=== PATIENT | female | born 1935 | race Caucasian/White ===

== ENCOUNTER 2016-04-11 12:25 | Inpatient (IN) | payer OTHER, MEDICAID ==
[~2016-04-11] VITALS: Ht 160 cm; Wt 72.6 kg
[~2016-04-11 12:25] MED LIST: ACETAMINOPHEN650 M6 PO; ACTOS15 MG; AMBIEN10 MG PO; ARMOUR THYROID60 M1; ATIVAN0.5 MG PO; ATIVAN2 MG; BETHANECHOL CHL10 MG; CEPHULAC10 GM/152 PO; COLACE250 MG PO; COREG3.125 MG; DESYREL50 MG PO; DILAUDID1 MG/M1; DILAUDID2 M1; DIOVAN 12.5 MG-1 TAB; DULCOLAX10 MG RC; FLEET ENEMA 13135 ML RC; MILK OF MA400 MG/5 M PO; MIRALAX17 GM/DOSE PO; MULTIVITAMIN1 SGL PO; MYLICON80 MG PO; NEURONTIN100 MG PO; NITROSTAT0.4 M1 SL; ONE DAILY MAXIM1 TAB PO; PERCOCET 325 MG1 TA4 PO; PERCOCET 5/3251 TAB PO; PROTONIX40 M1; PROVENTIL2.5 MG/3 M INH; SALT PO; SYNTHROID0.125 MG PO; TEMAZEPAM30 MG; TRAMADOL50 MG; ULTRAM50 MG PO; ZANTAC150 MG PO; ZOFRAN4 M1 PO; [UNRECOGNIZED DRUG - REMARK]
--- NOTE | 2016-04-11 12:29 | NUR ---
PT TO BED 3 BY EMS AT THIS TIME.
--- NOTE | 2016-04-11 12:32 | NUR ---
81F BIBA FROM [facility] C/O ABDOMINAL DISTENTION X 3 DAYS; PT C/O MID-ABDOMINAL PAIN, ACHING, NON-RADIATING, 8/10 X 3 DAYS; ABDOMEN FIRM, DISTENDED, HYPOACTIVE BOWEL SOUNDS X4 QUADRANTS; PT STATES "I'VE BEEN VOMITING ALL NIGHT AND ALL DAY TODAY", BUT DENIES DIARRHEA AT THIS TIME; PER EMS, NURSE AT [facility] ADMINISTERED DILAUDID AND ATIVAN 30 MIN PRIOR TO ARRIVAL TO ER; A&OX4, BL LUNG SOUNDS CLEAR, RR EVEN/UNLABORED, SKIN IS WARM/DRY/INTACT AT THIS TIME; PT STATES DOES NOT AMBULATE AT FACILITY; PT PLACED IN GOWN/ON MONITOR; RESTING IN BED W/ HOB ELEVATED AND IN LOWEST POSITION; POSITIONED FOR COMFORT; ER MD MADE AWARE OF STATUS. WILL CONTINUE TO MONITOR.
[2016-04-11 12:34] VITALS: BP 132/90
--- NOTE | 2016-04-11 12:54 | NUR ---
XRAY AT BEDSIDE
[2016-04-11] MEDS ORDERED: LIDOCAINE VISCOUS 2% 20 ML UDC ONE (13:07)
[2016-04-11] MEDS ORDERED: LORazepam 2 MG/ML VIAL IM ONE (13:50)
[2016-04-11] MEDS ORDERED: LORazepam 2 MG/ML VIAL IVP ONE (13:55)
--- NOTE | 2016-04-11 14:02 | NUR ---
# 12 FR NG tube placed to LEFT nare BY ER MD DR. HAYWOOD AT BEDSIDE. Placement checked by auscultation of instilled air into stomach and aspiration of gastric contents. Tubing taped in place to prevent dislodging. Patient tolerated PROCERDURE WELL.
[2016-04-11] MEDS ORDERED: NACL 0.9% 2,000 ML IV ONE (14:55)
--- NOTE | 2016-04-11 14:55 | NUR ---
URINE DIPSTICK RESULT RELAYED TO DR HAYWOOD
--- NOTE | 2016-04-11 15:49 | NUR ---
REPORT GIVEN TO INDRA ROSE.
--- NOTE | 2016-04-11 15:55 | NUR ---
Patient will be admitted to care of DR HAJI. Admited to TELE. Will go to [facility]. Belongings list completed. Report to INDRA ROSE.
[2016-04-11 16:10] VITALS: BP 92/75
--- NOTE | 2016-04-11 16:10 | NUR ---
PT ARRIVED FROM ER. RECEIVED REPORT FROM INDRA LASSITER. PT IS AAOX2, PT ON 2L NC O2 SAT AT98%. NG TUBE TO LEFT NARE, CLAMPED. IV TO RIGHT HAND #24. REDNESS TO HEELS NOTED. NO N/V OR PAIN INDICATED. ALL SAFETY PRECAUTIONS IN PLACE, SIDE RAILSX2, BED IN LOW POSITION, AND CALL LIGHT WITHIN REACH. WILL CONTINUE TO MONITOR
[2016-04-11] MEDS ORDERED: ONDANSETRON 4 MG/2 ML VIAL IVP PRN (16:30)
[2016-04-11] MEDS ORDERED: BISACODYL 10 MG SUPP RC PRN (16:30)
[2016-04-11] MEDS ORDERED: LORazepam 0.5 MG TAB PO PRN (16:30)
[2016-04-11] MEDS ORDERED: POTASSIUM CHL 10 MEQ/D5-1/2NS 1,000 ML IV SCH (16:30)
[2016-04-11] MEDS ORDERED: ZOLPIDEM 10 MG TAB PO PRN (16:30)
--- NOTE | 2016-04-11 16:40 | NUR ---
PT HAD LARGE BOWEL MOVEMENT, PT CLEANED.
[2016-04-11] MEDS ORDERED: DEXTROSE 50% 50 ML SYR IVP PRN (16:50)
--- NOTE | 2016-04-11 18:00 | NUR ---
DR PICKENS IN TO SEE PT. PT NG TUBE TO REMAIN CLAMPED, NG TUBE TO BE USED FOR MED ADMINISTRATION PER DR PICKENS. WILL FOLLOW UP ON ORDERS.
[2016-04-11] MEDS ORDERED: MAGNESIUM CITRATE 300 ML BTL PO SCH (18:10)
[2016-04-11] MEDS ORDERED: SODIUM PHOSPHATE 118 ML ENEM RC SCH (18:30)
[2016-04-11] MEDS: POTASSIUM CHL 20MEQ/D5-NS 1,000 ML IV SCH (18:47)
--- NOTE | 2016-04-11 19:16 | NUR ---
PT TOLERATED MEDS WELL. WILL CONTINUE TO MONITOR.
--- NOTE | 2016-04-11 19:30 | NUR ---
ENDORSED CARE TO INDRA AGUAYO. PT IN STABLE CONDITION.
--- NOTE | 2016-04-11 19:31 | NUR ---
RECEIVED PT IN STABLE CONDITION FROM ROSE Can RN. NO SOB, NO SIGNS OF DISTRESS. PT ON 2L O2 NC. PT IS AOX2/3 WITH CONFUSION AND FORGETFULNESS. PT BEDBOUND WITH BLE WEAKNESS. PT DENIES PAIN AT THIS TIME. PT TRYING TO PULL OUT NGT AND IV, PLACED MITTENS OF PT. NGT TO LT NARE CLAMPED, PATENT, IRRIGATED, FLUSHED, AUSCULTATED FOR POSITIVE PLACEMENT. PT WITH BLANCHABLE REDNESS TO BILATERAL HEELS. SKIN OTHERWISE INTACT, PLAN OF CARE DISCUSSED WITH PT. SAFETY MEASURES IN PLACE. CALL LIGHT WITHIN REACH. WILL CONTINUE TO MONITOR.
[2016-04-11 20:00] VITALS: BP 108/69
[2016-04-11] MEDS: traZODone 50 MG TAB PO SCH (20:41)
[2016-04-11] MEDS: FAMOTIDINE 20 MG/2 ML VIAL IV SCH (20:42)
[2016-04-11] MEDS: SENNA 8.6 MG TAB PO SCH (20:42)
[2016-04-11] MEDS: BISACODYL 10 MG SUPP RC SCH (20:42)
[2016-04-11] MEDS: BLOOD GLUCOSE MONITORING 1 DEV DEV FS SCH (20:44)
--- NOTE | 2016-04-11 20:44 | NUR ---
PT TOLERATED DUE MEDS WELL BY NGT. NO SOB, NO SIGNS OF DISTRESS. PT ON 2L O2 NC. IV SITE ASYMPTOMATIC, INTACT, PATENT, IVF RUNNING. PT DENIES PAIN AT THIS TIME. PLAN OF CARE DISCUSSED WITH PT. SAFETY MEASURES IN PLACE. CALL LIGHT WITHIN REACH. WILL CONTINUE TO MONITOR.
[2016-04-11] MEDS: INSULIN LISPRO SLIDING SCALE 100 UNITS/ML VIAL SUBQ PRN (23:01)
--- NOTE | 2016-04-11 23:40 | NUR ---
MOVED PT TO ROOM 121A DUE TO CONCERN OF PTS ROOMMATE STANDING OVER PT WHILE SHE WAS SLEEPING. NO SOB, NO SIGNS OF DISTRESS. PT ASLEEP IN BED. IV SITE ASYMPTOMATIC, INTACT, PATENT, IVF RUNNING. PT ON 2L O2 NC. NGT IN PLACE. SAFETY MEASURES IN PLACE. CALL LIGHT WITHIN REACH. WILL CONTINUE TO MONITOR.
[2016-04-12] VITALS: BP 114/57
--- NOTE | 2016-04-12 00:15 | NUR ---
VS STABLE. NO SOB, NO SIGNS OF DISTRESS. PT ON 2L O2 NC. IV SITE ASYMPTOMATIC, INTACT, PATENT, IVF RUNNING. PT DENIES PAIN AT THIS TIME. SAFETY MEASURES IN PLACE. CALL LIGHT WITHIN REACH. WILL CONTINUE TO MONITOR.
--- NOTE | 2016-04-12 02:18 | NUR ---
PT ASLEEP IN BED. NO SOB, NO SIGNS OF DISTRESS. PT ON 2L O2 NC. IV SITE ASYMPTOMATIC, INTACT, PATENT, IVF RUNNING. NGT IN PLACE. SAFETY MEASURES IN PLACE. CALL LIGHT WITHIN REACH. WILL CONTINUE TO MONITOR.
--- NOTE | 2016-04-12 03:55 | NUR ---
VS STABLE. PT ON 2L O2 NC. NO SOB, NO SIGNS OF DISTRESS. IV SITE ASYMPTOMATIC, INTACT, PATENT, IVF RUNNING. PT DENIES PAIN AT THIS TIME. PLAN OF CARE DISCUSSED WITH PT. SAFETY MEASURES IN PLACE. CALL LIGHT WITHIN REACH. WILL CONTINUE TO MONITOR.
[2016-04-12 04:00] VITALS: BP 108/67
[2016-04-12] MEDS: LEVOTHYROXINE 0.1 MG, LEVOTHYROXINE 0.025 MG PO SCH (05:45)
[2016-04-12] MEDS: POTASSIUM CHL 20MEQ/D5-NS 1,000 ML IV SCH ×3 (05:45→17:06)
[2016-04-12] MEDS: BLOOD GLUCOSE MONITORING 1 DEV DEV FS SCH ×4 (05:57→21:48)
[2016-04-12] MEDS: INSULIN LISPRO SLIDING SCALE 100 UNITS/ML VIAL SUBQ PRN ×3 (05:57→18:27)
--- NOTE | 2016-04-12 06:12 | NUR ---
BLOOD SUGAR 182, GAVE INSULIN PER MD ORDER. APPLIED SCDS. PT DENIES PAIN AT THIS TIME. NO SOB, NO SIGNS OF DISTRESS. IV SITE ASYMPTOMATIC, INTACT, PATENT, IVF RUNNING. PLAN OF CARE DISCUSSED WITH PT. SAFETY MEASURES IN PLACE. CALL LIGHT WITHIN REACH. WILL CONTINUE TOMORROW.
[2016-04-12] MEDS: HYDROmorphone 1 MG/ML AMP IVP PRN ×3 (06:51→22:52)
--- NOTE | 2016-04-12 06:51 | NUR ---
PT C/O PAIN ION ABDOMEN, MEDICATED PER MD ORDER. VS STABLE. PT ON 2L O2 NC. NGT IN PLACE. IV SITE ASYMPTOMATIC, INTACT, PATENT IVF RUNNING. PLAN OF CARE DISCUSSED WITH PT. SAFETY MEASURES IN PLACE. CALL LIGHT WITHIN REQACH. WILL CONTINUE TO MONITOR.
--- NOTE | 2016-04-12 07:23 | NUR ---
ENDORSED PT IN STABLE CONDITION TO INDRA DAUGHERTY. ALL NEEDS HAVE BEEN MET AT THIS TIME.
--- NOTE | 2016-04-12 07:23 | NUR ---
RECEIVED REPORT FROM NIGHT NURSE, PT IS AAOX2/3 WITH CONFUSION, IV TO RIGHT HAND 24G INFUSING WELL, O2 3L VIA NC, BILATERAL HEELS REDNESS, NG TUBE TO LEFT NOSTRIL, HARD DISTENDED ABD. INITIAL ASSESSMENT COMPLETED, ORIENTED PT TO ROOM AND ENVIRONMENT, ALL FALL/SAFETY PRECAUTIONS MET. CALL LIGHT WITHIN REACH. WILL CONTINUE TO MONITOR.
--- NOTE | 2016-04-12 07:56 | NUR ---
PATIENT HAS BEEN SCREENED AND CATEGORIZED MODERATE RISK. PATIENT WILL BE SEEN WITHIN 3-5 DAYS OF ADMISSION. 04/14/16 TO 04/16/[address]
[2016-04-12 08:00] VITALS: BP 109/67
[2016-04-12] MEDS ORDERED: SODIUM PHOSPHATE 118 ML ENEM RC SCH (08:00)
[2016-04-12] MEDS ORDERED: NON-FORMULARY ITEM (Levothyroxine Sodium* (Synthroid*) 0.125 MG) PO SCH (09:00)
[2016-04-12] MEDS: POLYETHYLENE GLYCOL 17 GM/PKT PO SCH ×3 (09:03→17:05)
[2016-04-12] MEDS: BISACODYL 10 MG SUPP RC SCH ×2 (09:03→21:00)
[2016-04-12] MEDS: SENNA 8.6 MG TAB PO SCH ×4 (09:03→21:39)
[2016-04-12] MEDS: DOCUSATE SODIUM 250 MG GELCAP PO SCH (09:04)
[2016-04-12] MEDS: GABAPENTIN 100 MG CAP PO SCH (09:05)
--- NOTE | 2016-04-12 09:14 | NUR ---
DUE MEDICATIONS GIVEN, PT C/O OF ABD DISCOMFORT AND NG TUBE DISCOMFORT. CALL LIGHT WITHIN REACH WILL CONTINUE TO MONITOR.
--- NOTE | 2016-04-12 09:30 | NUR ---
PT HAD A BM, PT WAS CLEANED, ALL NEEDS MET. CALL LIGHT WITHIN REACH.
[2016-04-12] MEDS ORDERED: POTASSIUM CHLORIDE 20% 40 MEQ/15 ML UDC NG SCH (09:50)
--- NOTE | 2016-04-12 11:10 | NUR ---
CHECKED IN ON PT, PT CURRENTLY SLEEPING. CALL LIGHT WITHIN REACH. WILL CONTINUE TO MONITOR.
[2016-04-12 12:00] VITALS: BP 122/67
--- NOTE | 2016-04-12 13:00 | NUR ---
DUE MEDICATIONS GIVEN. PT CURRENTLY AWAKE, DAUGHTER AT BEDSIDE CALL LIGHT WITHIN REACH. WILL CONTINUE TO MONITOR.
--- NOTE | 2016-04-12 14:45 | NUR ---
PT CURRENTLY VISITING WITH DAUGHTER. NO S/S OF DISTRESS OR DISCOMFORT NOTED. CALL LIGHT WITHIN REACH.
[2016-04-12 16:00] VITALS: BP 121/73
--- NOTE | 2016-04-12 17:08 | NUR ---
DUE MEDICATIONS GIVEN VIA NG TUBE. PT CURRENTLY SLEEPING. CALL LIGHT WITHIN REACH. WILL CONTINUE TO MONITOR.
--- NOTE | 2016-04-12 18:31 | NUR ---
PT CURRENTLY ASLEEP. NO S/S OF RESPIRATORY DISTRESS NOTED. CALL LIGHT WITHIN REACH.
--- NOTE | 2016-04-12 19:10 | NUR ---
ENDORSED PLAN OF CARE TO NIGHT NURSE. PT IN STABLE CONDITION.
--- NOTE | 2016-04-12 19:13 | NUR ---
RECEIVED PT FROM LILIAN BURRELL AT PT BEDSIDE FOR CONTINUITY OF CARE. PT NOTED STABLE, SLEEPING.
--- NOTE | 2016-04-12 19:55 | NUR ---
SHIFT ASSESSMENT DONE AT THIS TIME. PT IS A/O X2, ABLE TO VERBALIZE NEEDS AND FOLLOW COMMANDS. NO ACUTE DISTRESS NOTED. DISCUSSED PLAN OF CARE WITH PT, VERBALIZED UNDERSTANDING. VITAL SIGNS TAKEN, ARE STABLE. PT ON 3L VIA NASAL CANNULA WITH OXYGEN SATURATION AT 99%. PT IS AFEBRILE. PT DENIES PAIN, N/V, SOB, OR CHEST PAIN AT THIS TIME. UPON INSPECTION IV ACCESS TO RT HAND #24G, PATENT AND INTACT IVF. NOTED NO ACTIVE WOUNDS ONLY SACRAL REDNESS, BLANCHABLE. LUNG SOUNDS ARE CLEAR. BOWEL SOUNDS ARE DECREASED, AND LOW. ABDOMEN NOTED DISTENDED, WILL INFORM MD. PT HAS NG TUBE TO LEFT NARES, INTACT, POSITIVE FOR PLACEMENT WHEN AUSCULTATED. NO RESIDUAL NOTED, PATENT. SCD'S ARE IN PLACE. WILL CONTINUE TO MONITOR PT. SAFETY AND FALL RISK PRECAUTIONS IMPLEMENTED. CALL LIGHT WITHIN REACH.
[2016-04-12 20:00] VITALS: BP 131/68
[2016-04-12] MEDS: traZODone 50 MG TAB PO SCH (21:39)
[2016-04-12] MEDS: FAMOTIDINE 20 MG/2 ML VIAL IV SCH (21:39)
--- NOTE | 2016-04-12 21:51 | NUR ---
ELEVATOR CONSTRUCTOR SUPERVISOR'S AT BEDSIDE, PT IS REFUSING TURNING TO OFFLOAD PRESSURE AREAS. AWARE OF THE RISKS AND EDUCATION ON NEED FOR TURNING GIVEN, AWARE AND VERBALIZED UNDERSTANDING OF TEACHING. ELEVATOR CONSTRUCTOR SUPERVISOR'S AWARE. PT CHANGED AND PROVIDED BLANCA CARE, NOTED SACRAL REDNESS BLANCHABLE. PT HAS LOOSE STOOL, MODERATE AND SOFT FORMED, LIGHT BROWN. ALSO FOUND LEFT HAND IV INFILTRATED, IVF STOPPED. WILL RESTART NEW IV ACCESS. CALL LIGHT PLACED WITHIN REACH. WILL CONTINUE TO MONITOR.
--- NOTE | 2016-04-12 22:52 | NUR ---
PROVIDED PT WITH PAIN MEDICATION SEE, eMAR. PT REMAINS STABLE. WILL CONTINUE TO MONITOR. CALL LIGHT WITHIN REACH.
--- NOTE | 2016-04-12 23:03 | NUR ---
MADE DR. HAJI AWARE OF PT C.O. ABDOMINAL PAIN BLOATING AND DISTENTION. MADE AWARE OF PT HAS ABDOMINAL DISTENTION AND NO BOWEL SOUNDS HEARD. RECEIVED ORDER FOR PT TO BE PLACED ON NGT LOW CONTINUOUS SUCTIONING FOR 5-10 MINUETS NEEDED FOR BLOATING AND DISTENTION.
--- NOTE | 2016-04-12 23:05 | NUR ---
APPLIED SUCTION TO NGT PER RAISSA ORDER, WILL STOP IN 10 MIN.
--- NOTE | 2016-04-12 23:15 | NUR ---
NGT SUCTION STOPPED, NO OUTPUT NOTED.
[2016-04-13] VITALS: BP 142/85
--- NOTE | 2016-04-13 00:35 | NUR ---
PT VS REMAIN STABLE. NO ACUTE DISTRESS NOTED.
--- NOTE | 2016-04-13 02:26 | NUR ---
PT REMAINS SLEEPING, NO S/S OF DISTRESS.
--- NOTE | 2016-04-13 02:59 | NUR ---
PLASTERER SPOT'S AT BEDSIDE, PT STILL REFUSING TO BE TURNED. NOTED URINE INCONTINENCE AND PT HAD ANOTHER MODERATE AMOUNT OF BOWEL MOVEMENT. APPLIED Z-GUARD TO PT SACRAL AREA. WILL CONTINUE TO MONITOR PT.
[2016-04-13 04:00] VITALS: BP 121/86
--- NOTE | 2016-04-13 04:04 | NUR ---
PT VSS, C.O. PAIN. WILL PROVIDE PAIN MEDICATION, SEE eMAR. WILL CONTINUE TO MONITOR. CALL LIGHT WITHIN REACH. NC 3L STILL IN PLACE.
[2016-04-13] MEDS: POTASSIUM CHL 20MEQ/D5-NS 1,000 ML IV SCH ×2 (04:31→19:50)
[2016-04-13] MEDS: HYDROmorphone 1 MG/ML AMP IVP PRN ×3 (04:37→18:50)
[2016-04-13] MEDS ORDERED: Z-GUARD PASTE TP PRN (04:45)
[2016-04-13] MEDS: LEVOTHYROXINE 0.1 MG, LEVOTHYROXINE 0.025 MG PO SCH (05:57)
[2016-04-13] MEDS: BLOOD GLUCOSE MONITORING 1 DEV DEV FS SCH ×4 (06:09→21:02)
[2016-04-13] MEDS: INSULIN LISPRO SLIDING SCALE 100 UNITS/ML VIAL SUBQ PRN ×2 (06:12→21:07)
--- NOTE | 2016-04-13 07:20 | NUR ---
ENDORSED PT TO MICHAEL BURRELL FOR CONTINUITY OF CARE.
--- NOTE | 2016-04-13 07:25 | NUR ---
RECEIVED REPORT FROM CARLYLE RN. PT SLEEPING IN BED. AAOX2-3. NO S/S OF ACUTE DISTRESS. IV SITE PATENT AND INTACT. ON O2 3L NC. NG-TUBE NOTED, PATENT. CALL LIGHT WITHIN REACH. SAFETY MEASURES ENSURED. WILL CONTINUE TO MONITOR.
[2016-04-13 08:00] VITALS: BP 150/80
[2016-04-13] MEDS: DOCUSATE SODIUM 250 MG GELCAP PO SCH (09:00)
--- NOTE | 2016-04-13 09:30 | NUR ---
PT REFUSES TO BE REPOSITIONED. EXPLAINED THAT PT SHOULD BE TURNED TO PREVENT SKIN BREAKDOWN. PT VERBALIZED UNDERSTANDING BUT STATED SHE " DIDNT WANT TO BE ON HER SIDES. "
[2016-04-13] MEDS: BISACODYL 10 MG SUPP RC SCH ×2 (10:07→20:56)
[2016-04-13] MEDS: GABAPENTIN 100 MG CAP PO SCH (10:11)
[2016-04-13] MEDS: POLYETHYLENE GLYCOL 17 GM/PKT PO SCH ×3 (10:11→17:00)
[2016-04-13] MEDS: SENNA 8.6 MG TAB PO SCH ×4 (10:11→21:03)
--- NOTE | 2016-04-13 10:28 | NUR ---
PT TOLERATED AM MEDS WELL. NO S/S OF ACUTE DISTRESS. PT STATES PAIN 09/18. EXPLAINED TO PT MEDICATION WASNT DUE YET. SUCTIONED STOMACH TO RELIEVE PAIN. PT STATES IT HELPED. WILL MEDICATE ORDERED. CALL LIGHT WITHIN REACH. SAFETY MEASURES ENSURED.
[2016-04-13 12:00] VITALS: BP 157/74
[2016-04-13] MEDS ORDERED: SODIUM PHOSPHATE 118 ML ENEM RC SCH (12:15)
--- NOTE | 2016-04-13 12:30 | NUR ---
PT REFUSES ENEMA AND ALL 1300 MEDS AT THIS TIME. PT STATES HER STOMACH HERS AND SHE WANTS TO SLEEP. PT EDUCATED ON IMPORTANCE OF TAKING MEDICATIONS. PT VERBALIZED UNDERSTANDING.
--- NOTE | 2016-04-13 12:56 | NUR ---
UPON ENTERING ROOM, PT'S NG-TUBE TAKEN OUT. NO S/S OF ACUTE DISTRESS. FLACC-0. CALL LIGHT WITHIN REACH. SAFETY MEASURES ENSURED. WILL CONTINUE TO MONITOR. Addendum: 04/13/16 at 1259 by Montana Escoto RN WRONG PATIENT
[2016-04-13] MEDS: LACTULOSE 20 GM/30 ML UDC PO SCH ×2 (13:00→17:00)
--- NOTE | 2016-04-13 13:00 | NUR ---
PT SLEEPING IN BED. NO S/S OF ACUTE DISTRESS. CALL LIGHT WITHIN REACH. SAFETY MEASURES ENSURED. WILL CONTINUE TO MONITOR.
[2016-04-13] MEDS: Z-GUARD PASTE TP SCH (13:02)
--- NOTE | 2016-04-13 15:22 | NUR ---
PT SLEEPING IN BED. NO S/S OF ACUTE DISTRESS. CALL LIGHT WITHIN REACH. SAFETY MEASURES ENSURED. WILL CONTINUE TO MONITOR.
[2016-04-13 16:00] VITALS: BP 148/86
--- NOTE | 2016-04-13 18:14 | NUR ---
PT SLEEPING IN BED. NO S/S OF ACUTE DISTRESS. CALL LIGHT WITHIN REACH. SAFETY MEASURES ENSURED. WILL CONTINUE TO MONITOR.
--- NOTE | 2016-04-13 19:00 | NUR ---
RECEIVED PT REPORT FROM MICHAEL BURRELL AT BEDSIDE FOR CONTINUITY OF CARE, PT AWAKE AND STABLE. NO DISTRESS NOTED. CANNULA INTACT.
--- NOTE | 2016-04-13 19:23 | NUR ---
ENDORSED PLAN OF CARE TO NIGHT RN. PT REMAINS IN STABLE CONDITION.
--- NOTE | 2016-04-13 19:26 | NUR ---
SHIFT ASSESSMENT DONE. PT IS A/O X3, NO SIGNS OF ACUTE DISTRESS. PT IS COOPERATIVE, CALM, ABLE TO VERBALIZE NEEDS AND FOLLOW COMMANDS. DISCUSSED PLAN OF CARE WITH PT, VERBALIZED UNDERSTANDING. VITAL SIGNS ARE STABLE, PT ON 2L VIA NASAL CANNULA WITH OXYGEN SATURATION AT 100%. IS AFEBRILE. PT DENIES CHEST PAIN OR SOB. NO RESPIRATORY DISTRESS. LUNG SOUNDS ARE CLEAR. NO BOWEL SOUNDS HEARD AND ABDOMEN IS DISTENDED, MD ALREADY AWARE. NOTED NG-TUBE TO LEFT NARES, PER TODAY'S X-RAY, NG-TUBE IS NOT IN PLACE. PT REFUSING TO ADJUST AND REINSERT, WILL NOTIFY MD. IV ACCESS TO LEFT WRIST #24G, PATENT AND INTACT. SKIN INTACT, REDNESS TO SACRAL AREA AND HEELS, ALL BLANCHABLE. SCD'S ARE IN PLACE. PT STILL REFUSING TO TURN TO OFFLOAD PRESSURE AREAS. SAFETY AND FALL RISK PRECAUTIONS IMPLEMENTED. CALL LIGHT WITHIN REACH. WILL CONTINUE TO MONITOR.
--- NOTE | 2016-04-13 19:34 | NUR ---
SPOKE TO DR. HAJI REGARDING PT NG-TUBE IS MISPLACED PER ABDOMINAL XR TODAY. PT REFUSING TO REINSERT OR ADVANCE NG-TUBE AT THIS TIME, DR. HAJI AWARE. PER DR. HAJI OK TO REMOVE NG-TUBE AND PROVIDE PO MEDICATIONS BY MOUTH CRUSHED WITH APPLESAUCE.
--- NOTE | 2016-04-13 19:42 | NUR ---
REMOVED NG-TUBE, PT TOLERATED WELL. NO VOMITING NOTED. WILL CONTINUE TO MONITOR.
[2016-04-13 20:00] VITALS: BP 145/72
[2016-04-13] MEDS: FAMOTIDINE 20 MG/2 ML VIAL IV SCH ×2 (21:00→21:02)
--- NOTE | 2016-04-13 21:00 | NUR ---
IV INFILTRATED TO LEFT WRIST, IVF STOPPED. WILL RESTART NEW IV ACCESS
[2016-04-13] MEDS: traZODone 50 MG TAB PO SCH (21:02)
--- NOTE | 2016-04-13 21:03 | NUR ---
PROVIDED PT WITH PO MEDICATION CRUSHED WITH APPLESAUCE BY MOUTH, TOLERATED WELL. WILL CONTINUE TO MONITOR. CALL LIGHT WITHIN REACH.
--- NOTE | 2016-04-13 21:07 | NUR ---
PROVIDED INSULIN COVERAGE FOR PT BLOOD GLUCOSE OF 163.
--- NOTE | 2016-04-13 21:20 | NUR ---
CHARGE NURSE TO TRY TO START NEW IV, UNSUCCESSFUL.
--- NOTE | 2016-04-13 22:27 | NUR ---
IV INFILTRATED TO LEFT WRIST, IVF STOPPED. WILL RESTART NEW IV ACCESS. Addendum: 04/13/16 at 2321 by Quin Nolasco RN WRONG TIME. IV FOUND INFILTRATED AT 2100.
[2016-04-14] VITALS: BP 137/68
--- NOTE | 2016-04-14 | NUR ---
VS REMIAN STABLE, NO DISTRESS. CALL LIGHT WITHIN REACH. NASAL CANNULA STILL IN PLACE.
--- NOTE | 2016-04-14 00:50 | NUR ---
ER CHARGE NURSE TO TRY START NEW IV ACCESS, UNSUCCESSFUL.
[2016-04-14] MEDS: Z-GUARD PASTE TP SCH ×2 (01:04→12:45)
--- NOTE | 2016-04-14 01:11 | NUR ---
SPOKE TO DR. HAJI REGARDING PT IV ACCESS UNOBTAINABLE AND PT IS HARD STICK. PT IS IN PAIN AND ONLY PAIN MEDICATION IS IVP. PER DR. HAJI OK TO GIVE DILAUDID 1MG PO PRN FOR SEVERE PAIN. SUGGESTED FOR PT TO HAVE CENTRAL LINE, PHYSICIAN WILL SEE PT IN AM, NO ORDER RECEIVED FOR CENTRAL LINE.
[2016-04-14] MEDS: HYDROmorphone 2 MG TAB PO PRN ×4 (01:29→23:27)
--- NOTE | 2016-04-14 01:29 | NUR ---
PAIN MEDICATION PROVIDED PO, PER MD ORDERS. WILL CONTINUE TO MONITOR.
--- NOTE | 2016-04-14 02:01 | NUR ---
PT STABLE, NO ACUTE DISTRESS. CALL LIGHT WITHIN REACH. NASAL CANNULA STILL INTACT.
--- NOTE | 2016-04-14 04:00 | NUR ---
PT REFUSED VITAL SIGNS AT THIS TIME, PT WANTS TO SLEEP. NO S/S OF ACUTE DISTRESS NOTED. CALL LIGHT WITHIN REACH. WILL CONTINUE TO MONITOR.
[2016-04-14] MEDS: LEVOTHYROXINE 0.1 MG TAB PO SCH (05:29)
[2016-04-14] MEDS: POTASSIUM CHL 20MEQ/D5-NS 1,000 ML IV SCH ×2 (05:29→15:49)
[2016-04-14] MEDS: BLOOD GLUCOSE MONITORING 1 DEV DEV FS SCH ×4 (05:33→20:41)
--- NOTE | 2016-04-14 05:35 | NUR ---
CRIME LAB ANALYST UNABLE TO OBTAIN AM LAB DRAW, PT IS HARD STICK. WILL ENDORSE TO AM SHIFT NURSE.
--- NOTE | 2016-04-14 07:40 | NUR ---
ENDORSED PT TO EARNEST RN FOR CONTINUITY OF CARE, PT NOTED STABLE. CALL LIGHT WITHIN REACH.
--- NOTE | 2016-04-14 07:51 | NUR ---
RECEIVED REPORT FROM DRY STARCH SUPERVISOR RN. PT IS AWAKE, A/O X 4. NO S/S OF ACUTE CARDIAC/RESPIRATORY DISTRESS. SAFETY MEASURES IN PLACE, CALL LIGHT WITHIN REACH. WILL CONTINUE PLAN OF CARE AND CONTINUE TO MONITOR.
[2016-04-14 08:00] VITALS: BP 133/74
[2016-04-14] MEDS ORDERED: SODIUM PHOSPHATE 118 ML ENEM RC PRN (08:00)
[2016-04-14] MEDS: DOCUSATE SODIUM 250 MG GELCAP PO SCH (09:01)
[2016-04-14] MEDS: GABAPENTIN 100 MG CAP PO SCH (09:02)
[2016-04-14] MEDS: SENNA 8.6 MG TAB PO SCH ×4 (09:02→20:46)
[2016-04-14] MEDS: POLYETHYLENE GLYCOL 17 GM/PKT PO SCH ×3 (09:02→17:53)
[2016-04-14] MEDS: LACTULOSE 20 GM/30 ML UDC PO SCH ×3 (09:02→17:53)
[2016-04-14] MEDS: BISACODYL 10 MG SUPP RC SCH ×2 (09:02→20:45)
--- NOTE | 2016-04-14 10:31 | NUR ---
PT TOLERATED HER BREAKFAST WELL, HAD A SMALL SOFT BOWEL MOVEMENT. PT WAS CLEANED AND CHANGED. PT REFUSES TO BE TURNED. PT IS CURRENTLY SLEEPING. NO S/S OF ACUTE DISTRESS OR DISCOMFORT. CALL LIGHT WITHIN REACH. WILL CONTINUE TO MONITOR.
[2016-04-14 12:00] VITALS: BP 143/66
--- NOTE | 2016-04-14 13:21 | NUR ---
PT IS SLEEPING. PT TOLERATED KUB WELL. PT SEEN BY DR PICKENS. NO S/S OF ACUTE DISTRESS OR DISCOMFORT. CALL LIGHT WITHIN REACH, WILL CONTINUE TO MONITOR.
--- NOTE | 2016-04-14 14:04 | NUR ---
SS NOTE: PER POLO FROM [facility] ([phone]), THEY WILL HAVE PT'S BED AVAILABLE TOMORROW, ROOM 36B AND PT CAN COME ANYTIME.
--- NOTE | 2016-04-14 14:19 | NUR ---
SPOKE WITH DR. HAJI, WILL HOLD DISCHARGE UNTIL TOMORROW, 04/15/16.
[2016-04-14 16:00] VITALS: BP 125/61
--- NOTE | 2016-04-14 16:00 | NUR ---
PT REPOSITIONED TO LEFT LATERAL. NO S/S OF ACUTE DISTRESS OR DISCOMFORT. PT TOLERATING NGTUBE FEEDING WELL. CALL LIGHT WITHIN REACH, WILL CONTINUE TO MONITOR. Addendum: 04/14/16 at 1646 by Charly Whitaker RN WRONG PATIENT.
--- NOTE | 2016-04-14 16:46 | NUR ---
PT SLEEPING. NO S/S OF ACUTE DISTRESS OR DISCOMFORT. CALL LIGHT WITHIN REACH, WILL CONTINUE TO MONITOR.
--- NOTE | 2016-04-14 19:28 | NUR ---
ENDORSED REPORT TO ENVIRONMENTAL LABORATORY TECHNICIAN RN. PT HAS NO S/S OF ACUTE DISTRESS OR DISCOMFORT. PT IN STABLE CONDITION.
--- NOTE | 2016-04-14 19:30 | NUR ---
RECEIVED REPORT FROM EARNEST RN AT BEDSIDE. INITIAL ASSESSMENT AND BODY CHECK DONE. PATIENT AA TO SELF/PLACE WITH EPISODE OF FORGETFUL, BUT ABLE TO FOLLOW SIMPLE COMMAND AND MAKE NEEDS KNOWN AND ON BEDREST. PATIENT CURRENTLY LYING DOWN ON THE BED. NO S/S OF DISTRESS OR SOB NOTED. STILL C/O LOWER BACK PAIN AT THIS TIME. SKIN WARM/ DRY TO TOUCH WITH NORMAL COLOR AND INTACT WITH BLANCHABLE SACRAL REDNESS. NO IV ACCESS AND MD MADE AWARE. DISCUSSED PLAN OF CARE, PAIN MANAGEMENT AND MEDICATION REGIMEN WITH PATIENT AND PATIENT VERBALIZED UNDERSTANDING. PLACED PATIENT ON SAFETY/FALL/ASPIRATION PRECAUTIONS AND WILL CONTINUE TO MONITOR. CALL LIGHT LEFT WITHIN REACH.
[2016-04-14 19:58] VITALS: BP 150/69
[2016-04-14] MEDS: FAMOTIDINE 20 MG/2 ML VIAL IV SCH (20:44)
[2016-04-14] MEDS: traZODone 50 MG TAB PO SCH (20:46)
--- NOTE | 2016-04-14 21:35 | NUR ---
ADMINISTERED DUE AND ANXIETY MEDICATIONS MD'S ORDERED WITH EDUCATION GIVEN. PATIENT COMPLYING WITH MEDICATIONS AND TOLERATED WELL. NOTED PATIENT HAS SMALL BM AND WET THE BED. PM CARE/BLANCA-CARE GIVEN WITH LINENS CHANGED. PATIENT REFUSED TO OFFLOAD THE BACK AREA WITH PILLOW. EXPLAINED RISKS/BENEFITS. KEPT PATIENT IN COMFORTABLE POSITION/WARM AND WILL CONTINUE TO MONITOR.
--- NOTE | 2016-04-14 22:48 | NUR ---
ROUNDS MADE, SEEN PATIENT ASLEEP WITH EVEN AND UNLABORED RESPIRATORY RATE. NO CHANGE IN CONDITION NOR BEHAVIOR PROBLEM NOTED. WILL CONTINUE TO MONITOR.
[2016-04-15] VITALS: BP 132/71
--- NOTE | 2016-04-15 | NUR ---
ATTEMPTED TO INSERT THE NEW IV LINE, BUT UNABLE TO GET ONE.
[2016-04-15] MEDS: Z-GUARD PASTE TP SCH ×2 (00:11→09:34)
--- NOTE | 2016-04-15 00:40 | NUR ---
PATIENT WAS MOANING AT 2320 PM AND NOTED PATIENT HAS ANOTHER LOOSE STOOL. AM CARE GIVEN WITH LINENS/GOWN CHANGED AND GAVE PRN PO MEDICATION FOR C/O ABDOMINAL PAIN AND ASSISTED TO REPOSITION. AFTER 1 HR POST-MEDICATION, SEEN PATIENT RESTED COMFORTABLY IN BED. V/S REMAINED WNL AND NO DISTRESS NOTED. WILL CONTINUE MONITOR.
[2016-04-15] MEDS: POTASSIUM CHL 20MEQ/D5-NS 1,000 ML IV SCH ×2 (01:50→11:42)
[2016-04-15 04:00] VITALS: BP 154/70
--- NOTE | 2016-04-15 04:10 | NUR ---
PATIENT IS CLINICALLY STABLE WITH UNCHANGED V/S. AM CARE GIVEN. PATIENT REFUSED TO REPOSITION AND OFFLOADED PRESSURE AREAS. WILL CONTINUE TO MONITOR.
[2016-04-15] MEDS: LEVOTHYROXINE 0.1 MG TAB PO SCH (05:33)
[2016-04-15] MEDS: BLOOD GLUCOSE MONITORING 1 DEV DEV FS SCH ×2 (05:34→11:48)
[2016-04-15] MEDS: HYDROmorphone 2 MG TAB PO PRN (05:37)
--- NOTE | 2016-04-15 07:23 | NUR ---
ENDORSED PLAN OF CARE TO Brisa ROSE RN, AT BEDSIDE. PATIENT REMAINED IN STABLE CONDITION WITHOUT S/S OF DISTRESS NOTED ,BUT STILL C/O ABDOMINAL PAIN. HAD 4 BOWEL MOVEMENTS THROUGHOUT THE SHIFT.
--- NOTE | 2016-04-15 07:24 | NUR ---
RECEIVED REPORT FROM INDRA LOW. PT IS AAOX2, FORGETFUL. PT ON 3L NC, O2 SAT AT 96%. NO S/S OF DISTRESS NOTED. PT HAS NO IV ACCESS, OK PER MD. REDNESS TO SACRAL AREA AND HEELS. NO N/V OR PAIN INDICATED. ALL SAFETY PRECAUTIONS IN PLACE, SIDE RAILSX2, BED IN LOW POSITION, AND WILL PERFORM FREQUENT ROUNDS. WILL CONTINUE TO MONITOR.
[2016-04-15 08:00] VITALS: BP 121/59
[2016-04-15] MEDS: SENNA 8.6 MG TAB PO SCH (09:23)
[2016-04-15] MEDS: DOCUSATE SODIUM 250 MG GELCAP PO SCH (09:25)
[2016-04-15] MEDS: LACTULOSE 20 GM/30 ML UDC PO SCH (09:26)
[2016-04-15] MEDS: POLYETHYLENE GLYCOL 17 GM/PKT PO SCH (09:26)
[2016-04-15] MEDS: GABAPENTIN 100 MG CAP PO SCH (09:26)
[2016-04-15] MEDS: BISACODYL 10 MG SUPP RC SCH (09:26)
--- NOTE | 2016-04-15 09:46 | NUR ---
CM NOTE SPOKE WITH HILARIO [facility] PH# [phone], DIRECT NUMBER # [phone] OPTION 2, TO SET UP PATIENT TRANSPORT. PER HILARIO, MED TRANSPORTATION RESERVATION# [id number]. RECEIVED A CALL FROM [facility] [phone] AND HE CONFIRMED THAT PATIENT WILL BE PICKED UP BY [facility] TODAY BETWEEN 11:3O AND 12:30 TIME ON GURNEY WITH 3L O2 [place]IA [place] GOING TO [facility] [address] HAJI, NUMBER TO CALL FOR REPORT # [phone]. NURSE ROSE AWARE EXT [phone].
--- NOTE | 2016-04-15 09:54 | NUR ---
PT TOLERATED MEDS WELL. PT CLEANED AND REPOSITIONED. FEED PT. WILL CONTINUE TO MONITOR.
--- NOTE | 2016-04-15 10:00 | NUR ---
PT SLEEPING NO DISTRESS NOTED.
[2016-04-15 10:42] VITALS: BP 121/59
[2016-04-15 12:00] VITALS: BP 138/77
--- NOTE | 2016-04-15 12:25 | NUR ---
PT HAS BEEN TRANSFERRED TO [facility] IN [place]. ALL PAPERWORK COMPLETED, ALL QUESTIONS ANSWERED. REMOVED TELE BOX, AND WRISTBANDS. PT'S DAUGHTER NOTIFIED OF TRANSFER. REPORT GIVEN TO ACCEPTING NURSE-SANDRINE. ALL DISCHARGE EDUCATIONS PROVIDED. HELD NOVOLOG, DUE TO LUNCH TRAY NOT ARRIVING. PT CLEANED PRIOR TO STATISTICAL MACHINE SERVICER BY GERRY. ALL BELONGINGS IN PT POSSESSION. DR HAJI TO ACCEPT PT. PT WHEELED OUT OF UNIT VIA [employer]. PT IN STABLE CONDITION.
== END 2016-04-15 12:25 | DRG 389 ==
LOC: MED 12:29 → MTU 15:19
PROVIDERS: ADMIT Family Medicine; ATTEND Family Medicine
DX: K56.41 Fecal impaction (principal); F11.20 Opioid dependence, uncomplicated; K56.60 Unspecified intestinal obstruction; E11.8 Type 2 diabetes mellitus with unspecified complications; I10 Essential (primary) hypertension; I25.10 Atherosclerotic heart disease of native coronary artery without angina pectoris; E03.9 Hypothyroidism, unspecified; D72.829 Elevated white blood cell count, unspecified; R41.81 Age-related cognitive decline; G89.4 Chronic pain syndrome; Z88.0 Allergy status to penicillin; Z88.8 Allergy status to other drugs, medicaments and biological substances; Z87.311 Personal history of (healed) other pathological fracture